=== PATIENT | female | born 1990 | race Two or more races ===

== ENCOUNTER 2020-11-20 09:00 | Inpatient (IN) | payer MEDICAID ==
[~2020-11-20] VITALS: Ht 167.6 cm; Wt 78.9 kg
[2020-11-20] MEDS ORDERED: DERMOPLAST 60ML BOTTLE TOP PRN (09:15)
[2020-11-20] MEDS ORDERED: CARBOPROST TROMETHAMINE 250 MCG/1ML VIAL IM PRN (09:15)
[2020-11-20] MEDS ORDERED: METHYLERGONOVINE MALEATE 0.2 MG/ML AMP IM PRN (09:15)
[2020-11-20] MEDS ORDERED: miSOPROStol 100 mcg TAB PR ONE (09:15)
[2020-11-20] MEDS ORDERED: miSOPROStol 100 mcg TAB SL ONE (09:15)
[2020-11-20] MEDS ORDERED: PHISODERM TOP SOLN 240ML BTL TOP PRN (09:15)
[2020-11-20] MEDS ORDERED: LACTATED RINGER'S 1,000 ML IV SCH (09:15)
[2020-11-20] MEDS ORDERED: PENICILLIN G POT 5MIL/D5 50ML 50 ML IV ONE (09:15)
[2020-11-20] MEDS ORDERED: LIDOCAINE 2%HCL (LOCAL ANESTH.) INJ 20ML MDV IJ ONE (09:15)
[2020-11-20] MEDS ORDERED: BUTORPHANOL TARTRATE 2 MG/1 ML VIAL IV PRN ×2 (09:15)
[2020-11-20] MEDS ORDERED: WITCH HAZEL-GLYCERIN PAD TOP PRN (09:15)
[2020-11-20] MEDS ORDERED: LACT. RINGERS/OXYTOCIN 20UNITS 1,000 ML IV ONE (09:23)
[2020-11-20] MEDS ORDERED: LACT. RINGERS/OXYTOCIN 20UNITS 500 ML IV ONE ×2 (09:30)
[2020-11-20] MEDS ORDERED: DIPHENOXYLATE W/ATROPINE 2.5 MG TAB PO SCH (10:00)
[2020-11-20 10:46] LABS: Basophils # (auto) 0 10 ^3/uL (0-0.2); Eosinophils # (auto) 0.1 10 ^3/uL (0-0.8); Hematocrit 33.2 % (36.0-46.0); Hemoglobin 10.8 g/dL (12.2-16.2); Lymphocytes # (auto) 1.8 10 ^3/uL (0.4-5.4); Mean Corpuscular Hemoglobin 24.4 pg (28.0-32.0)
[2020-11-20 10:49] LABS: Basophils % (auto) 0.4 % (0.0-2.0); Eosinophils % (auto) 0.9 % (0.0-7.0); Mean Corpuscular Hgb Conc. 32.6 g/dL (32.0-36.0); Mean Corpuscular Volume 74.8 fL (80.0-100.0); Monocytes # (auto) 0.5 10 ^3/uL (0-1.3); Monocytes % (auto) 4.7 % (0.0-12.0); Neutrophils # (auto) 8.9 10 ^3/uL (1.6-8.6); Platelet Count (auto) 266 10^3/uL (140-450); Red Blood Cells 4.43 10^6/uL (4.0-5.20); Red Cell Distribution Width 16.4 % (11.8-14.3); Urine Bacteria NONE SEEN /hpf (None Seen); Urine Blood Negative /uL (Negative); Urine Mucus FEW (None Seen); Urine Specific Gravity 1.027 (1.001-1.035); Urine WBC <1 /hpf (0 - 5); White Blood Cell 11.4 10^3/uL (4.4-10.8)
[2020-11-20 10:57] LABS: INR 0.98 (0.9-1.15); Partial Thromboplastin Time 25.2 sec (23.0-31.2)
[2020-11-20] MEDS ORDERED: PREN-129 OR (11:00)
[2020-11-20] MEDS: IBUPROFEN 600 MG TAB PO PRN ×2 (11:09→22:54)
[2020-11-20 11:34] LABS: Albumin 2.7 g/dL (3.4-5.0); Calcium 8.6 mg/dL (8.5-10.1); Potassium 3.4 mmol/L (3.5-5.1)
[2020-11-20 11:35] LABS: Alcohol, Urine < 3.0 mg/dL (0-10); Amphetamine Screen, Urine NEGATIVE (NEGATIVE); Barbiturate Scree,Urine NEGATIVE (NEGATIVE); Benzodiazephine Screen, Urine NEGATIVE (NEGATIVE); Cannabinoid Screen, Urine POSITIVE (NEGATIVE); Cocaine Screen, Urine NEGATIVE (NEGATIVE); Opiate Scree,Urine NEGATIVE (NEGATIVE); Phencyclidine Screen, Urine NEGATIVE (NEGATIVE)
[2020-11-20 11:37] LABS: BUN/Creatinine Ratio 11.3; Bilirubin, Total 0.2 mg/dL (0.2-1.0); Total Protein 6.8 g/dL (6.4-8.2)
[2020-11-20 12:30] VITALS: BP 102/57
[2020-11-20 13:10] VITALS: BP 106/59
[2020-11-20 15:00] VITALS: BP 109/55
[2020-11-20 19:00] VITALS: BP 125/58
[2020-11-20 23:00] VITALS: BP 109/59
[2020-11-21 03:00] VITALS: BP 102/56
[2020-11-21 07:00] VITALS: BP 103/62
[2020-11-21 08:06] LABS: Rubella Antibodies, IgG 3.67 index (Immune >0.99)
[2020-11-21 11:00] VITALS: BP 102/54
[2020-11-21 15:00] VITALS: BP 105/54
[2020-11-21] MEDS: IBUPROFEN 600 MG TAB PO PRN (16:11)
[2020-11-21 19:30] VITALS: BP 107/58
[2020-11-21 22:10] VITALS: BP 110/64
== END 2020-11-21 22:10 | disposition home or self-care (01) | DRG 560 ==
LOC: LDRP 09:00
PROVIDERS: ADMIT Specialist; ATTEND Specialist
PROC: 10E0XZZ Delivery of Products of Conception, External Approach (ICD-10-PCS; principal; 2020-11-20)
DX: O80 Encounter for full-term uncomplicated delivery (principal); Z20.822 Contact with and (suspected) exposure to COVID-19; Z37.0 Single live birth; Z3A.39 39 weeks gestation of pregnancy
CPT/HCPCS: 36415; 59025; 59409; 80053; 80307; 81001; 81002; 82962; 85025; 85610; 85730; 86592; 86703; 86762; 86850; 86900; 86901; 87340; 87426; 94760; 96360; 96361; 96365; G0378; J2540; J2590